=== PATIENT | female | born 1980 | race Caucasian/White ===

== ENCOUNTER 2018-09-06 20:39 | Emergency (ER) | payer SELFPAY ==
[2018-09-06 20:47] VITALS: RESP 16; TEMP 98.6; O2SAT 100
--- NOTE | 2018-09-06 21:15 | ED PDOC ---
Arrival/HPI - General Chief Complaint: Rib Injury Time Seen by Provider: 09/06/18 20:50 Historian: Patient - History of Present Illness Narrative History of Present Illness (Text): 09/06/18 21:12 38 year old female, with no significant past medical history, presents to the emergency department for evaluation of discomfort to her right ribcage area, for 2 weeks. Patient states she was getting a "foot massage" when she felt a pop in her ribcage area, and has been having pain ever since. Patient states it hurts to take a deep breath. Patient also states pain is worse with certain movements. Patient denies any shortness of breath, nausea, vomiting, fever, chills, back pain, neck pain, or any other complaints. Time/Duration: > week (2 weeks) Symptom Course: Unchanged Past Medical History - Provider Review Nursing Documentation Reviewed: Yes - Psychiatric Hx Psychophysiologic Disorder: No Hx Substance Use: No - Surgical History Other/Comment: D&C, NASAL Family/Social History - Physician Review Nursing Documentation Reviewed: Yes Family/Social History: No Known Family HX Smoking Status: Never Smoked Hx Alcohol Use: No Hx Substance Use: No Allergies/Home Meds Allergies/Adverse Reactions: Allergies egg Allergy (Verified 09/06/18 20:41) SWELLING Sulfa (Sulfonamide Antibiotics) Allergy (Verified 09/06/18 20:41) RASH Review of Systems - Physician Review All systems were reviewed & negative as marked: Yes - Review of Systems Constitutional: absent: Fevers, Night Sweats Respiratory: absent: SOB Cardiovascular: Chest Pain (pain to right ribcage) Gastrointestinal: absent: Nausea, Vomiting Genitourinary Female: absent: Urine Output Changes Musculoskeletal: absent: Back Pain, Neck Pain Neurological: absent: Headache, Dizziness Psychiatric: Normal Physical Exam Vital Signs Reviewed: Yes Vital Signs Temp Pulse Resp BP Pulse Ox 09/06/18 20:42 98.6 F 100 H 16 153/92 H 100 Temperature: Afebrile Blood Pressure: Hypertensive Pulse: Tachycardic Respiratory Rate: Normal Appearance: Positive for: Well-Appearing, Non-Toxic, Comfortable Pain Distress: None Mental Status: Positive for: Alert and Oriented X 3 - Systems Exam Head: Present: Atraumatic, Normocephalic Pupils: Present: PERRL Extroacular Muscles: Present: EOMI Conjunctiva: Present: Normal Mouth: Present: Moist Mucous Membranes Neck: Present: Normal Range of Motion Respiratory/Chest: Present: Clear to Auscultation, Good Air Exchange, Tender to Palpation (right lower lateral ribcage). No: Other (no crepitus) Cardiovascular: Present: Regular Rate and Rhythm, Normal S1, S2. No: Murmurs Abdomen: Present: Normal Bowel Sounds. No: Tenderness, Distention, Peritoneal Signs Back: No: CVA Tenderness Upper Extremity: Present: Normal Inspection. No: Cyanosis, Edema Lower Extremity: Present: Normal Inspection. No: Edema Neurological: Present: GCS=15, CN II-XII Intact, Speech Normal Skin: Present: Warm, Dry, Normal Color. No: Rashes Psychiatric: Present: Alert, Oriented x 3, Normal Insight, Normal Concentration Medical Decision Making ED Course and Treatment: 09/06/18 21:18 Impression: 38 year old female presents with right ribcage pain. Plan: -- X-ray of right ribs and chest -- Reassess and disposition Prior Visits: Notes and results from previous visits were reviewed. Progress Notes: 09/06/18 22:22 X-ray of right ribs and chest reviewed, shows: No acute process. - RAD Interpretation Radiology Orders: 09/06/18 20:58 RIBS RIGHT & PA CHEST [RAD] Stat - Scribe Statement The provider has reviewed the documentation as recorded by the Jimenaibhoracio Muse Provider Scribe Attestation: All medical record entries made by the Scribe were at my direction and personally dictated by me. I have reviewed the chart and agree that the record accurately reflects my personal performance of the history, physical exam, medical decision making, and the department course for this patient. I have also personally directed, reviewed, and agree with the discharge instructions and disposition. Disposition/Present on Arrival - Present on Arrival Any Indicators Present on Arrival: No History of DVT/PE: No History of Uncontrolled Diabetes: No Urinary Catheter: No History of Decub. Ulcer: No History Surgical Site Infection Following: None - Disposition Have Diagnosis and Disposition been Completed?: Yes Diagnosis: Rib contusion Disposition: HOME/ ROUTINE Disposition Time: 22:20 Patient Plan: Discharge Patient Problems: Current Active Problems Problem Status Onset Rib contusion Acute Condition: GOOD Discharge Instructions (ExitCare): Bruised Rib (DC) Additional Instructions: Avoid any strenuous physical activity/take meds as prescribed/follow up with your doctor this week Prescriptions: Naproxen [Naprosyn Tab] 375 mg PO BID PRN #14 tab PRN Reason: Pain, Moderate (4-7) Referrals: FAMILY PROVIDER,NO [Primary Care Provider] - Follow up with primary Forms: [employer] (Danish), WORK NOTE
[2018-09-06 22:39] VITALS: BP 125/80
[2018-09-06 22:52] VITALS: PULSE 90
--- NOTE | 2018-09-07 12:02 | RAD ---
Date of service: 09/06/2018 PROCEDURE: Radiographs of the Chest and Right Ribs. HISTORY: injury COMPARISON: None available. TECHNIQUE: Frontal radiograph of the chest and multiple oblique radiographs of the right ribs were obtained. FINDINGS: RIGHT RIBS: No fracture or focal lesion visualized. LUNGS: Clear. PLEURA: No pneumothorax or pleural fluid. CARDIOVASCULAR: Normal cardiac size. No pulmonary vascular congestion. No aortic atherosclerotic calcification present OTHER FINDINGS: None. IMPRESSION: Unremarkable radiographs of the chest and right ribs. No right rib fracture.
== END 2018-09-06 22:38 | disposition home or self-care (01) ==
LOC: ED 20:39
DX: S20.219A Contusion of unspecified front wall of thorax, initial encounter (principal); X58.XXXA Exposure to other specified factors, initial encounter; Y92.9 Unspecified place or not applicable